=== PATIENT | female | born 2000 | race African-American/Black ===

== ENCOUNTER 2021-08-31 11:23 | Outpatient (CLI) | payer OTHER, SELFPAY ==
--- NOTE | ~2021-08-31 | US_ITS ---
EXAMINATION: US venous doppler LE EXAM DATE: 08/31/2021 12:06 INDICATION: TECHNIQUE: Multiple grayscale, color flow and Doppler images of the lower extremity deep venous syste ms bilaterally were obtained and reviewed. There is no prior study for comparison. FINDINGS: Right side: The right common femoral, femoral and profunda veins demonstrate normal color flow, respi ratory variation, augmentation and compressibility. Compressibility, color flow confirmed within the right popliteal, posterior tibial, peroneal, and greater saphenous veins. Left side: The left common femoral, femoral and profunda veins demonstrate normal color flow, respira tory variation, augmentation and compressibility. Compressibility, color flow confirmed within the l eft popliteal, posterior tibial, peroneal, and greater saphenous veins. IMPRESSION: 1. No lower extremity deep venous thrombosis bilaterally. Reviewed, dictated and finalized at location A. PER ASSEMBLER
[2021-08-31 17:34] LABS: Rheumatoid Factor < 8.6 IU/ML (<12)
[2021-08-31 17:36] LABS: CRP < 0.5 mg/dL (<1.0); Uric Acid 3.8 mg/dL (2.5-7.5)
[2021-08-31 17:59] LABS: Erythrocyte Sedimentation Rate 16 mm/hr (0-20)
[2021-09-03 17:56] LABS: HLA B27 Negative (Negative)
== END 2021-08-31 11:24 | disposition home or self-care (01) ==
PROVIDERS: Visit Provider Podiatrist Foot & Ankle Surgery
DX: M79.89 Other specified soft tissue disorders (principal)
CPT/HCPCS: 36415; 84550; 85652; 86038; 86140; 86430; 86812; 93970